=== PATIENT | male | born 2000 | race African-American/Black ===

== ENCOUNTER 2021-11-02 16:41 | Emergency (ER) | payer MEDICAID ==
[~2021-11-02] VITALS: Ht 182.9 cm; Wt 70.0 kg
[2021-11-02 19:30] LABS: HEMATOCRIT. 44.8 % (42.0-52.0); HEMOGLOBIN. 14.8 g/dL (14.0-18.0); MEAN CORPUSCULAR HEMOGLOBIN 29.4 pg (28.0-32.0); MEAN CORPUSCULAR VOLUME 88.8 fL (80.0-94.0); MEAN PLATELET VOLUME 10.5 fl (7.4-10.4); PLATELET 181 x1000/uL (130-400); RED BLOOD CELL COUNT 5.04 mill/uL (4.7-6.1)
[2021-11-02 19:37] LABS: CHLORIDE 103 mEq/L (98-107)
[2021-11-02 19:42] LABS: ETHANOL BLOOD < 10 mg/dL
[2021-11-02 20:09] LABS: CLARITY URINE CLOUDY (CLEAR); COLOR URINE DARK YELLOW (YELLOW); KETONES URINE 1+ (NEGATIVE); LEUKOCYTE ESTERASE URINE NEGATIVE (NEGATIVE); NITRITE URINE NEGATIVE (NEGATIVE); OCCULT BLOOD URINE TRACE (NEGATIVE); PH URINE 5.5 (4.5-8.0); PROTEIN URINE 2+ (NEGATIVE); SPECIFIC GRAVITY URINE 1.021 (1.005-1.030)
[2021-11-02 20:30] LABS: *AMPHETAMINES SCREEN URINE NEGATIVE (NEGATIVE); *BARBITURATES SCREEN URINE NEGATIVE (NEGATIVE); *BENZODIAZEPINES SCREEN URINE NEGATIVE (NEGATIVE); *COCAINE SCREEN URINE NEGATIVE (NEGATIVE); METHADONE URINE SCREEN NEGATIVE (NEGATIVE); OPIATES URINE SCREEN NEGATIVE (NEGATIVE)
[2021-11-02 20:31] LABS: CANNABINOID URINE SCREEN PRESUMTIVE POSITIVE (NEGATIVE); PHENCYCLIDINE URINE SCREEN NEGATIVE (NEGATIVE)
[2021-11-02 21:18] LABS: PLATELET ESTIMATE NORMAL
[2021-11-02] MEDS ORDERED: OLANZAPINE 5MG TABLET ODT PO ONE (21:45)
[2021-11-03] MEDS ORDERED: LORAZEPAM 2MG/ML CPJ IM ONE (01:15)
[2021-11-03] MEDS ORDERED: HALOPERIDOL LACTATE 5MG/ML VIAL IM ONE (01:15)
[2021-11-03] MEDS ORDERED: TETANUS, DIPHTHERIA, PERTUSSIS VAC/PF 0.5ML (>10YR OLD) IM ONE (03:00)
[2021-11-03] MEDS ORDERED: POTASSIUM CHLORIDE 20MEQ TABLET SR PO NR (03:00)
[2021-11-03] MEDS: RISPERIDONE 1MG TABLET PO SCH ×2 (04:06→09:00)
[2021-11-04 05:43] VITALS: BP 128/74
== END 2021-11-04 06:19 | disposition home or self-care (01) ==
LOC: ER 16:41
DX: S50.812A Abrasion of left forearm, initial encounter (principal); S60.812A Abrasion of left wrist, initial encounter; F23 Brief psychotic disorder; E87.6 Hypokalemia; Z20.822 Contact with and (suspected) exposure to COVID-19; Y93.89 Activity, other specified; Y92.488 Other paved roadways as the place of occurrence of the external cause
CPT/HCPCS: 36415; 70450; 73130; 73610; 80053; 80305; 80307; 80320; 80329; 81003; 85025; 87635; 96372; 99285; J1630; J2060; G0480